=== PATIENT | female | born 1985 | race Caucasian/White ===

== ENCOUNTER 2021-02-08 07:29 | Emergency (ER) | payer SELFPAY ==
[~2021-02-08] VITALS: Ht 157.5 cm; Wt 90.9 kg
[2021-02-08 07:39] VITALS: TEMP 98.1
[2021-02-08 10:10] VITALS: BP 152/81; PULSE 74
[2021-02-09] MEDS ORDERED: VOLTAREN 75 DR75 MG PO (12:30)
[2021-02-09] MEDS ORDERED: CEPHALEXIN500 M1 PO (12:30)
== END 2021-02-08 10:14 | disposition home or self-care (01) ==
LOC: COL.ER 07:29
DX: R10.11 Right upper quadrant pain (principal); Z87.891 Personal history of nicotine dependence

== ENCOUNTER 2021-02-08 14:38 | Emergency (ER) | payer SELFPAY ==
[~2021-02-08] VITALS: Ht 157.5 cm; Wt 113.6 kg
[2021-02-08 14:53] VITALS: TEMP 98
[2021-02-08 15:34] LABS: BASO # 0.1 (0.0-0.2); BASO % 0.4 % (0.0-2.0); EOS # 0.2 (0.0-0.7); EOS % 1.8 % (0-4.0); GRAN # 7.8 (1.4-6.5); GRAN % 65.5 % (42.2-75.2); HEMATOCRIT 40.3 % (37.0-47.0); HEMOGLOBIN 13.3 g/dl (12.5-16.0); LYMPH % 24.9 % (20.0-51.0); MEAN CELL VOLUME 90 fl (80.0-100.0); MEAN CORPUSCULAR HEMOGLOBIN 30 pg (27.0-31.0); MEAN CORPUSCULAR HGB CONC 33 g/dl (33.0-37.0); MEAN PLATELET VOLUME 11.8 fl (7.4-10.4); MONO # 0.8 (0.1-0.6); MONO % 6.9 % (1.7-9.3); PLATELET COUNT 264 K/mm3 (130-400); RED BLOOD COUNT 4.47 M/mm3 (4.10-5.30); REDCELL DISTRIBUTION WIDTH-CV 13.9 % (11.5-14.5)
[2021-02-08 15:57] LABS: ALANINE AMINOTRANSFERASE 46 U/L (4-34); ALBUMIN 3.8 gm/dL (3.5-5.0); ALKALINE PHOSPHATASE 63 U/L (50-136); ANION GAP 6 mmol/L (7-16); AST,SGOT 51 U/L (15-37); BILIRUBIN,TOTAL 0.6 mg/dL (0.0-1.0); BLOOD UREA NITROGEN 12 mg/dL (7-17); CALCIUM 8.9 mg/dL (8.4-10.2); CARBON DIOXIDE 27 mmol/L (22-30); CHLORIDE 102 mmol/L (98-107); CREATININE, serum 0.61 (0.52-1.25); GLUCOSE 107 mg/dL (74-106); SODIUM 135 mmol/L (137-145); TOTAL PROTEIN 7.1 gm/dL (6.4-8.2)
[2021-02-08 16:00] LABS: ACETAMINOPHEN < 10 ug/mL (10-30); ALCOHOL(ethanol),MEDICAL < 10 mg/dL; POTASSIUM 2.9 mmol/L (3.4-5.0); SALICYLATE < 1.0 mg/dL
--- NOTE | 2021-02-08 16:13 | NUR ---
MAC responded to consult. The patient presented to the ED this morning and then went to the Crisis Stabilization Unit and was screened. [facility] sent the patient back to the ED, reporting that the patient has been cleared and does not have any mental health issues and that the patient is on meth. MAC contacted the CSU and they confirmed that the patient has been cleared and that they have no plans for her to come back there. The patient's RN also informed SW that the patient is homeless. MAC contacted the [facility]. The medical receptionist biller reports that the patient is not on their do not return list and that they do have a bed available for her. MAC met with the patient. The patient was erratic. She states that she lives in [place], [place] and that her cousin brought her to [place] for a wedding. She reports that her cousin is not here anymore and that she does not have her phone, so does not know her cousin's phone number. The patient would not give SW her cousin's name and she would not say if she lives in [place]. The patient states that she got to the hospital by walking. SW inquired about where she would go after she discharges. The patient states that not everyone has to have a plan. MAC educated her on and informed her that the [facility] does have a bed available for her. The patient verbalized understanding. MAC gave the patient [facility]'s Resource Guide and circled [facility]'s information for her, with the address and contact info. The patient then gave SW her cousin's name: Niurka Jin. She reports that if her cousin's phone number was obtained, she would not want us to contact her cousin. MAC updated the patient's RN and provided her with a taxi voucher.
[2021-02-08 17:08] VITALS: BP 114/66; PULSE 91
[2021-02-09] MEDS ORDERED: VOLTAREN 75 DR75 MG PO (12:30)
[2021-02-09] MEDS ORDERED: CEPHALEXIN500 M1 PO (12:30)
== END 2021-02-08 17:08 | disposition home or self-care (01) ==
LOC: COL.ER 14:38
PROVIDERS: Physician Assistant
DX: F41.9 Anxiety disorder, unspecified (principal); F19.10 Other psychoactive substance abuse, uncomplicated; R10.11 Right upper quadrant pain; Z87.891 Personal history of nicotine dependence; Z32.02 Encounter for pregnancy test, result negative

== ENCOUNTER → 2021-02-08 | Emergency (ER) ==
[~2021-02-08] MED LIST: CEPHALEXIN500 M1 PO; VOLTAREN 75 DR75 MG PO
== END ==
LOC: COL.ER 06:42
DX: Z00.00 Encounter for general adult medical examination without abnormal findings (principal)

== ENCOUNTER 2021-02-09 11:19 | Emergency (ER) | payer SELFPAY ==
[~2021-02-09] VITALS: Ht 157.5 cm; Wt 113.6 kg
[2021-02-09 11:29] VITALS: TEMP 98.3
[2021-02-09] MEDS ORDERED: CEPHALEXIN500 M1 PO (12:30)
[2021-02-09] MEDS ORDERED: VOLTAREN 75 DR75 MG PO (12:30)
[2021-02-09 13:11] VITALS: BP 143/83; PULSE 84
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
== END 2021-02-09 13:11 | disposition home or self-care (01) ==
LOC: COL.ER 11:19
DX: S90.822A Blister (nonthermal), left foot, initial encounter (principal); S90.821A Blister (nonthermal), right foot, initial encounter; L03.116 Cellulitis of left lower limb; L03.115 Cellulitis of right lower limb; K81.1 Chronic cholecystitis; X58.XXXA Exposure to other specified factors, initial encounter